=== PATIENT | female | born 1975 | race Caucasian/White ===

== ENCOUNTER 2021-05-13 15:18 | Emergency (ER) | payer MEDICAID, OTHER ==
[~2021-05-13] VITALS: Ht 152.4 cm; Wt 65.0 kg
[2021-05-13 17:11] VITALS: BP 130/84
== END 2021-05-13 17:12 | disposition home or self-care (01) ==
LOC: ER 15:18
DX: J06.9 Acute upper respiratory infection, unspecified (principal); J02.9 Acute pharyngitis, unspecified; I10 Essential (primary) hypertension; R00.0 Tachycardia, unspecified; K21.9 Gastro-esophageal reflux disease without esophagitis; Z98.890 Other specified postprocedural states
CPT/HCPCS: 99281

== ENCOUNTER 2024-08-05 22:52 | Inpatient (IN) | payer SELFPAY ==
[~2024-08-05] VITALS: Ht 154.9 cm; Wt 66.3 kg
[2024-08-05 23:37] VITALS: O2SAT 99
[2024-08-06 00:06] LABS: BASOPHILS % 0.3 % (0.0-2.0); EOSINOPHILS % 0.5 % (0.0-5.0); HEMATOCRIT. 40.9 % (36.0-48.0); HEMOGLOBIN. 13.6 g/dL (12.0-16.0); MEAN CORPUSCULAR HEMOGLOBIN 28.3 pg (28.0-32.0); MEAN CORPUSCULAR HGB CONC 33.3 g/dL (31.0-37.0); MEAN PLATELET VOLUME 7.2 fl (7.4-10.4); MONOCYTES % 5.1 % (2.0-8.0); NEUTROPHILS % 80.1 % (40.0-76.0); PLATELET 289 x1000/uL (130-400); RED BLOOD CELL COUNT 4.81 mill/uL (4.2-5.4); RED CELL DISTRIBUTION WIDTH 13.4 % (11.6-14.6); WHITE BLOOD COUNT 14.5 x1000/uL (4.5-11.0)
[2024-08-06 00:22] LABS: CHLORIDE 108 mEq/L (98-107); POTASSIUM 3.4 mEq/L (3.5-5.1); SODIUM 141 mEq/L (136-145)
[2024-08-06 00:23] LABS: CALCIUM 9.8 mg/dL (8.7-10.4); CARBON DIOXIDE 21 mEq/L (21-32)
[2024-08-06 00:28] LABS: CREATININE 0.7 mg/dL (0.6-1.0); GLUCOSE 152 mg/dL (70-105); UREA NITROGEN BLOOD 15 mg/dL (9-23)
[2024-08-06 00:29] LABS: ALBUMIN 4.8 g/dL (3.2-4.8)
[2024-08-06 00:30] LABS: ALANINE AMINOTRANSFERASE 24 IU/L (10-49); ASPARTATE AMINOTRANSFERASE 26 IU/L (<34); BILIRUBIN DIRECT 0.1 mg/dL (<=3.0); BILIRUBIN TOTAL 0.5 mg/dL (0.1-1.0); PROTEIN TOTAL 7.7 g/dL (6.0-8.3)
[2024-08-06 00:38] LABS: TROPONIN I HIGH SENSITIVITY < 4 ng/L (3.0-34)
[2024-08-06 00:38] LABS: CLARITY URINE CLEAR (CLEAR); COLOR URINE YELLOW (YELLOW); GLUCOSE URINE NEGATIVE (NEGATIVE); KETONES URINE 3+ (NEGATIVE); LEUKOCYTE ESTERASE URINE NEGATIVE (NEGATIVE); NITRITE URINE NEGATIVE (NEGATIVE); OCCULT BLOOD URINE 3+ (NEGATIVE); PH URINE 5.5 (4.5-8.0); PROTEIN URINE 1+ (NEGATIVE); SPECIFIC GRAVITY URINE 1.031 (1.005-1.030); UROBILINOGEN URINE 0.2 E.U./dL (0.2-1.0)
[2024-08-06] MEDS: ONDANSETRON 4MG ODT PO ONE (04:10)
[2024-08-06] MEDS: KETOROLAC 30MG/ML VIAL IM ONE (04:11)
[2024-08-06 04:22] LABS: HCG SCREEN NEGATIVE
[2024-08-06 04:58] LABS: SQUAMOUS EPITHELIAL CELL URINE FEW /lpf (RARE/1+)
[2024-08-06 04:59] LABS: RBC URINE TNTC /hpf (0-2); WBC URINE 0-2 /hpf (0-2)
[2024-08-06 05:00] LABS: BACTERIA URINE NONE SEEN
[2024-08-06] MEDS: CEFTRIAXONE 1GM/50ML 50 ML IV ONE (06:43)
[2024-08-06] MEDS: METRONIDAZOLE 500 MG PREMIX 100 ML IV ONE (06:43)
[2024-08-06] MEDS: KCL 10MEQ/50ML PREMIX 50 ML IV ONE (06:54)
[2024-08-06] MEDS: SODIUM CHLORIDE 0.45% 1,000 ML IV ONE (06:55)
[2024-08-06] MEDS ORDERED: BUPIVACAINE HCL/PF 0.5% (5MG/ML) 10ML ONE (07:28)
[2024-08-06] MEDS ORDERED: SKIN ADHESIVE 0.7 GM EA TOP ONE (07:28)
[2024-08-06 07:35] VITALS: BP 127/74; PULSE 80; RESP 16; TEMP 36.7; O2SAT 99
[2024-08-06] MEDS ORDERED: IPRATROPIUM/ALBUTEROL 0.5-3(2.5)MG/3ML NEB HHN PRN (08:00)
[2024-08-06] MEDS ORDERED: DOCUSATE SODIUM 100MG CAPSULE PO PRN (08:00)
[2024-08-06] MEDS ORDERED: KETOROLAC 15MG/ML VIAL IV PRN (08:00)
[2024-08-06] MEDS ORDERED: ONDANSETRON HCL 4MG/2ML INJ IV PRN ×2 (08:00→09:30)
[2024-08-06] MEDS ORDERED: CLONIDINE 0.1MG TABLET PO PRN (08:00)
[2024-08-06] MEDS ORDERED: GUAIFENESIN 200MG/10ML SUGAR FREE UDC PO PRN (08:00)
[2024-08-06] MEDS ORDERED: ACETAMINOPHEN 325MG TABLET PO PRN ×2 (08:00)
[2024-08-06] MEDS ORDERED: PROPOFOL 200MG/20ML VIAL IV ONE (08:03)
[2024-08-06] MEDS ORDERED: METOCLOPRAMIDE HCL 10MG/2ML VIAL ONE (08:03)
[2024-08-06] MEDS ORDERED: EPHEDRINE SULFATE 50MG/ML VIAL ONE (08:03)
[2024-08-06] MEDS ORDERED: ONDANSETRON HCL 4MG/2ML INJ ONE (08:03)
[2024-08-06] MEDS ORDERED: CEFAZOLIN SODIUM 1000MG/VIAL ONE (08:03)
[2024-08-06] MEDS ORDERED: ROCURONIUM BROMIDE 10MG/ML VIAL 5ML IV ONE (08:03)
[2024-08-06] MEDS ORDERED: PHENYLEPHRINE HCL 10MG/ML 1ML IV ONE (08:03)
[2024-08-06] MEDS ORDERED: MIDAZOLAM HCL 2 MG/2 ML VIAL ONE (08:04)
[2024-08-06] MEDS ORDERED: FENTANYL CITRATE/PF 50MCG/ML 2ML VIAL ONE ×2 (08:04→08:42)
[2024-08-06] MEDS ORDERED: LABETALOL 5MG/ML 20ML VIAL IV ONE (08:27)
[2024-08-06] MEDS ORDERED: SUGAMMADEX SODIUM 200MG/2ML VIAL IV ONE (08:49)
[2024-08-06] MEDS ORDERED: FAMOTIDINE 20MG/2ML VIAL IV ONE (08:50)
[2024-08-06] MEDS ORDERED: HYDROMORPHONE HCL/PF 1MG/ML INJ IV PRN (09:30)
[2024-08-06] MEDS ORDERED: ACETAMINOPHEN WITH CODEINE 300/30MG TABLET PO SCH (09:45)
[2024-08-06] MEDS ORDERED: ENOXAPARIN 40MG/0.4ML SYR SUBCUT SCH (19:00)
== END 2024-08-06 16:52 | disposition home or self-care (01) | DRG 710 ==
LOC: ER 22:52 → 7EST 08-06 06:17 → ENRESERV 08-06 06:58
PROVIDERS: ADMIT Internal Medicine; ATTEND Internal Medicine
PROC: 0DTJ4ZZ Resection of Appendix, Percutaneous Endoscopic Approach (ICD-10-PCS; principal; 2024-08-06)
DX: A41.9 Sepsis, unspecified organism (principal); D25.9 Leiomyoma of uterus, unspecified; K37 Unspecified appendicitis; K21.9 Gastro-esophageal reflux disease without esophagitis; E87.6 Hypokalemia; Z97.5 Presence of (intrauterine) contraceptive device; Z98.891 History of uterine scar from previous surgery
CPT/HCPCS: 36415; 74176; 76830; 76856; 80048; 80076; 81003; 84484; 84703; 85025; 88304; 93005; 99285; J0665; J0690; J0696; J1308; J1885; J2250; J2371; J2405; J2704; J2765; J3010; J3480; J3490; J7030; Q0162

== ENCOUNTER 2024-12-21 11:21 | Emergency (ER) | payer MEDICAID, OTHER ==
[~2024-12-21] VITALS: Ht 152.4 cm; Wt 73.0 kg
[2024-12-21 11:30] VITALS: TEMP 37; O2SAT 98
[2024-12-21] MEDS: MECLIZINE 25MG TABLET PO ONE (13:04)
[2024-12-21] MEDS: ACETAMINOPHEN 500MG TABLET PO ONE (13:04)
[2024-12-21] MEDS: ONDANSETRON 4MG ODT PO ONE (13:04)
[2024-12-21] MEDS ORDERED: MECL-299 MT (14:36)
[2024-12-21] MEDS ORDERED: ONDA4TAB50 MT (14:36)
[2024-12-21] MEDS ORDERED: ACET-2708 MT (14:37)
[2024-12-21 14:56] VITALS: BP 139/75; PULSE 88; RESP 16; O2SAT 100
[2024-12-21 15:24] LABS: BASOPHILS % 0.5 % (0.0-2.0); EOSINOPHILS % 1.5 % (0.0-5.0); HEMATOCRIT. 42.9 % (36.0-48.0); HEMOGLOBIN. 14.3 g/dL (12.0-16.0); LYMPHOCYTES % 34.4 % (20.0-50.0); MEAN PLATELET VOLUME 7.5 fl (7.4-10.4); MONOCYTES % 6.6 % (2.0-8.0); NEUTROPHILS % 57.0 % (40.0-76.0); PLATELET 270 x1000/uL (130-400); RED BLOOD CELL COUNT 5.07 mill/uL (4.2-5.4); RED CELL DISTRIBUTION WIDTH 13.2 % (11.6-14.6)
[2024-12-21 15:31] LABS: CREATININE 0.6 mg/dL (0.6-1.0); UREA NITROGEN BLOOD 11 mg/dL (9-23)
== END 2024-12-21 14:59 | disposition home or self-care (01) ==
LOC: ER 11:21
DX: G43.809 Other migraine, not intractable, without status migrainosus (principal); R07.9 Chest pain, unspecified
CPT/HCPCS: 99284; 80048; 85025; 36415; 93005; J8597; Q0162